=== PATIENT | male | born 2000 | race Two or more races ===

== ENCOUNTER 2022-07-14 11:59 | Emergency (ER) | payer MEDICAID, OTHER ==
[~2022-07-14] VITALS: Ht 160 cm; Wt 49.9 kg
[2022-07-14] MEDS ORDERED: NOREPINEPHRINE 8 MG/250ML KIT 250 ML IV ONE (12:17)
[2022-07-14] MEDS ORDERED: NOREPINEPHRINE 8 MG/250ML KIT 250 ML IV SCH (12:30)
[2022-07-14 12:32] VITALS: BP 53/19
[2022-07-14 12:44] LABS: Hematocrit 38.6 % (41.0-53.0); Hemoglobin 10.4 g/dL (13.5-17.5); Mean Corpuscular Hemoglobin 29.1 pg (28.0-32.0); Mean Corpuscular Hgb Conc. 27.1 g/dL (32.0-36.0); Mean Corpuscular Volume 107.4 fL (80.0-100.0); Red Blood Cells 3.59 10^6/uL (4.5-5.90); White Blood Cell 26.8 10^3/uL (4.4-10.8)
[2022-07-14] MEDS ORDERED: EPINEPHrine HCL 250 ML IV ONE (13:15)
[2022-07-14] MEDS ORDERED: KETAMINE HCL 500 MG in SODIUM CHL 0.9% 490 ML IV SCH (13:30)
[2022-07-14] MEDS ORDERED: SODIUM CHLORIDE 0.9% 1,000 ML IV ONE (13:30)
[2022-07-14 13:35] LABS: Urine Bacteria NONE SEEN /hpf (None Seen); Urine Blood Negative /uL (Negative); Urine Hyaline Cast FEW /lpf (0 - 2); Urine WBC 1 /hpf (0 - 3)
[2022-07-14 13:55] LABS: INR 1.12 (0.9-1.15)
[2022-07-14 13:55] LABS: BUN/Creatinine Ratio 11.8 (10.0-20.0); Calcium 11.4 mg/dL (8.5-10.1); Potassium 4.8 mmol/L (3.5-5.1)
[2022-07-14 13:57] LABS: Bilirubin, Total 0.1 mg/dL (0.2-1.0); Total Protein 7.2 g/dL (6.4-8.2)
[2022-07-14 14:01] LABS: Magnesium 2.8 mg/dL (1.6-2.6)
[2022-07-14 14:13] LABS: Basophils % (manual) 0 (0.0-2.0); Blast Cells 0; Promyelocytes % 0; Reactive Lymphocytes 0; Red Cell Distribution Width 22.6 % (11.8-14.3)
[2022-07-14 14:18] LABS: Partial Thromboplastin Time 93.4 sec (24.6-33.4)
[2022-07-14 14:26] LABS: Alcohol, Urine < 3.0 mg/dL (0-10); Amphetamine Screen, Urine NEGATIVE (NEGATIVE); Barbiturate Scree,Urine NEGATIVE (NEGATIVE); Cannabinoid Screen, Urine NEGATIVE (NEGATIVE); Cocaine Screen, Urine NEGATIVE (NEGATIVE)
[2022-07-14 14:30] VITALS: BP 58/25
[2022-07-14 14:34] LABS: Benzodiazephine Screen, Urine POSITIVE (NEGATIVE); Opiate Scree,Urine NEGATIVE (NEGATIVE); Phencyclidine Screen, Urine NEGATIVE (NEGATIVE)
[2022-07-14] MEDS ORDERED: PHENYLEPHRINE IV 250 ML IV SCH (14:45)
[2022-07-14] MEDS ORDERED: PHENYLEPHRINE IV 250 ML IV ONE (14:45)
[2022-07-14 15:35] LABS: Band Neutrophils % (manual) 20; Eosinophils % (manual) 2 (0-7); Lymphocytes % (manual) 41 (10.0-50.0); Metamyelocytes % 2; Monocytes % (manual) 6 (0-12); Myelocytes % 5
[2022-07-14] MEDS ORDERED: SODIUM BICARBONATE 8.4% INJ 50ML SYRINGE ONE (16:29)
[2022-07-14] MEDS ORDERED: DOPamine 1600MCG/ML D5W 250 ML IV SCH (17:00)
[2022-07-14] MEDS ORDERED: EPINEPHrine HCL 1 MG/1 ML AMP ONE (17:10)
[2022-07-14] MEDS ORDERED: EPINEPHrine HCL 1 MG/10 ML SYRG ONE (17:11)
[2022-07-14 17:12] VITALS: BP 90/22
== END 2022-07-14 17:21 ==
LOC: ER 11:59 → EDBD 11:59 → ER 17:21
DX: I46.9 Cardiac arrest, cause unspecified (principal); R56.9 Unspecified convulsions; G80.9 Cerebral palsy, unspecified; R41.82 Altered mental status, unspecified; Z79.899 Other long term (current) drug therapy; Z79.01 Long term (current) use of anticoagulants
CPT/HCPCS: 36415; 36600; 71045; 80053; 80307; 81001; 82550; 82805; 83735; 84484; 85007; 85027; 85610; 85730; 87070; 87077; 87186; 87205; 92950; 93005; 96365; 96366; 99291; J0171; J2370; J7040; 94002